=== PATIENT | male | born 1960 | race Caucasian/White ===

== ENCOUNTER 2022-05-20 05:44 | Emergency (ER) | payer OTHER ==
[~2022-05-20] VITALS: Ht 177.8 cm; Wt 93.0 kg
--- NOTE | 2022-05-20 06:29 | NUR ---
patient c/o tongue swelling since 299. to bed 3. a/ox4. sister in law at bedside. connected to monitor.
[2022-05-20] MEDS ORDERED: diphenhydrAMINE HCL 50 MG/ML VIAL IV ONE (06:30)
[2022-05-20] MEDS ORDERED: methylPREDNISolone SOD SUCC 125 MG/2ML VIAL IV ONE (06:30)
[2022-05-20] MEDS ORDERED: diphenhydrAMINE HCL 50 MG/ML VIAL ONE (06:33)
[2022-05-20] MEDS ORDERED: methylPREDNISolone SOD SUCC 125 MG/2ML VIAL ONE (06:33)
[2022-05-20] MEDS ORDERED: EPINEPHRINE (1:1000) 1 MG/ML AMPUL ONE (06:45)
[2022-05-20] MEDS ORDERED: TRANEXAMIC ACID 1,000 MG/10 ML VIAL ONE (06:46)
--- NOTE | 2022-05-20 06:52 | NUR ---
COVID SWAB DONE AND SENT TO LAB
--- NOTE | 2022-05-20 06:55 | NUR ---
[facility] ORDO[facility] CALLED FOR HIGHER LEVEL OF CARE. LEFT MESSAGE.
[2022-05-20] MEDS ORDERED: TRANEXAMIC ACID 1,000 MG/10 ML VIAL IV ONE (07:00)
[2022-05-20] MEDS ORDERED: EPINEPHRINE (1:1000) MDV 30 MG/30ML VIAL SUBCUT ONE (07:00)
--- NOTE | 2022-05-20 07:14 | NUR ---
[facility] CALLED FOR HIGHER LEVEL OF CARE. [facility] FAXED TO [phone]
--- NOTE | 2022-05-20 07:33 | NUR ---
[facility] [facility] FAXED TO [facility]DO[facility].
--- NOTE | 2022-05-20 09:20 | NUR ---
REFAXED [facility]. [phone]
--- NOTE | 2022-05-20 10:12 | NUR ---
DR. RIGGS FROM [facility] SPEAKING WITH DR. MAST.
[2022-05-20] MEDS ORDERED: DIPH25CA83 PO (10:49)
[2022-05-20] MEDS ORDERED: PRED50TA PO (10:49)
--- NOTE | 2022-05-20 10:58 | NUR ---
DR. KANNAN ALVARADO FROM [facility] CALLED FOR DR. MAST
--- NOTE | 2022-05-20 11:02 | NUR ---
PT DISCHARGED TO HOME WITH NEW PRESCRIPTION. PT EDUCATED ON MEDICATION. PT VERBALIZES UNDERSTANDING OF EDUCATION. IV REMOVED. PT LEFT FACILITY.
[2022-05-20 11:03] VITALS: BP 111/65
== END 2022-05-20 11:04 | disposition home or self-care (01) ==
LOC: ER 05:47
DX: T78.3XXA Angioneurotic edema, initial encounter (principal); R73.03 Prediabetes; Z20.822 Contact with and (suspected) exposure to COVID-19
CPT/HCPCS: 87426; 96372; 96374; 96375; 99291; C9803; J0171 ×2; J1200; J2930

== ENCOUNTER 2022-09-06 10:27 | Emergency (ER) | payer OTHER ==
[~2022-09-06] VITALS: Ht 180.3 cm; Wt 93.0 kg
[~2022-09-06 10:27] MED LIST: DIPH25CA83 PO; PRED50TA PO
--- NOTE | 2022-09-06 10:27 | NUR ---
BIBWIFE c/o cough with congestion x 5 days and sorethroat x 4 days, tested negative (covid) 2 days ago. AMBULATORY, PLACED ON BED,BREATHING EVEN AND UNLABORED.
[2022-09-06] MEDS ORDERED: KETOROLAC TROMETHAMINE 15 MG/ML VIAL ONE (11:48)
[2022-09-06] MEDS: BENZONATATE 100 MG CAPSULE PO PRN (11:56)
[2022-09-06] MEDS: KETOROLAC TROMETHAMINE INJ 30 MG/ML VIAL IM ONE (11:57)
--- NOTE | 2022-09-06 11:58 | NUR ---
SWAB FOR [facility] SENT
[2022-09-06] MEDS ORDERED: IBUP-1955 PO (12:04)
[2022-09-06] MEDS ORDERED: BENZ-13 PO (12:04)
[2022-09-06 12:24] VITALS: BP 115/75
--- NOTE | 2022-09-06 12:24 | NUR ---
Patient discharged to home in stable condition. Written and verbal after care instructions given. Patient verbalizes understanding of instruction.
== END 2022-09-06 12:25 | disposition home or self-care (01) ==
LOC: ER 10:27
DX: J02.8 Acute pharyngitis due to other specified organisms (principal); B97.89 Other viral agents as the cause of diseases classified elsewhere; R05.9 Cough, unspecified; Z20.822 Contact with and (suspected) exposure to COVID-19; R73.03 Prediabetes; E78.5 Hyperlipidemia, unspecified; I10 Essential (primary) hypertension
CPT/HCPCS: 99283; 96372; U0003; J1885; C9803

== ENCOUNTER 2023-12-15 08:28 | Emergency (ER) | payer OTHER ==
[~2023-12-15] VITALS: Ht 177.8 cm; Wt 87.1 kg
[~2023-12-15 08:28] MED LIST changes: +BENZ-13 PO; +IBUP-1955 PO
[2023-12-15 08:54] VITALS: TEMP 97.8
[2023-12-15 10:23] LABS: BASOPHILS # (AUTO) 0.1 K/uL (0.0-0.2); BASOPHILS % (AUTO) 1.5 % (0.0-2.0); EOSINOPHILS # (AUTO) 0.2 K/uL (0.0-0.7); EOSINOPHILS % (AUTO) 3.3 % (0.0-6.0); HEMATOCRIT 45 % (39-51); HEMOGLOBIN 15.7 g/dL (13.5-17.5); LYMPHOCYTES # (AUTO) 1.5 K/uL (0.8-4.8); LYMPHOCYTES % (AUTO) 27.4 % (20.0-44.0); MEAN CORPUSCULAR HEMOGLOBIN 32 PG (26.0-33.0); MEAN CORPUSCULAR HGB CONC 35 g/dl (31.0-36.0); MEAN CORPUSCULAR VOLUME 92 fL (80-96); MONOCYTES # (AUTO) 0.5 K/uL (0.1-1.30); MONOCYTES % (AUTO) 10.1 % (2.0-12.0); NEUTROPHILS # (AUTO) 3.1 K/uL (1.8-8.9); NEUTROPHILS % (AUTO) 57.7 % (43.0-81.0); PLATELET COUNT (AUTO) 211 K/uL (150-450); RED BLOOD CELL COUNT(AUTO) 4.92 MIL/uL (4.5-6.0); RED CELL DISTRIBUTION WIDTH 13.2 % (11.5-15.0); WHITE BLOOD COUNT (AUTO) 5.4 K/uL (4.3-11.0)
[2023-12-15 10:57] LABS: CALCIUM, SERUM 8.8 mg/dL (8.5-10.1); CREATININE 0.8 mg/dL (0.6-1.3); POTASSIUM 4.4 mmol/L (3.5-5.1)
[2023-12-15] MEDS ORDERED: AZIT1PAC9 PO (11:55)
[2023-12-15 12:06] VITALS: BP 110/76; O2SAT 95
== END 2023-12-15 12:04 | disposition home or self-care (01) ==
LOC: ER 08:31
DX: J40 Bronchitis, not specified as acute or chronic (principal); R05.9 Cough, unspecified; E78.5 Hyperlipidemia, unspecified; I10 Essential (primary) hypertension; Z20.822 Contact with and (suspected) exposure to COVID-19; Z79.899 Other long term (current) drug therapy; Z88.5 Allergy status to narcotic agent
CPT/HCPCS: 36415; 71045-TC; 80048-TC; 84484-TC; 85025-TC

== ENCOUNTER 2025-03-15 12:02 | Emergency (ER) | payer OTHER ==
[~2025-03-15] VITALS: Ht 180.3 cm; Wt 93.0 kg
[~2025-03-15 12:02] MED LIST changes: +AZIT1PAC9 PO
[2025-03-15] MEDS ORDERED: NAPR-1164 PO (12:39)
[2025-03-15] MEDS ORDERED: KETOROLAC TROMETHAMINE 15 MG/ML VIAL ONE (12:57)
[2025-03-15] MEDS: KETOROLAC TROMETHAMINE 15 MG/ML VIAL IM ONE (13:01)
[2025-03-15 13:19] VITALS: BP 126/70; TEMP 98.5; O2SAT 98
== END 2025-03-15 13:20 | disposition home or self-care (01) ==
LOC: ER 12:19
DX: M54.50 Low back pain, unspecified (principal); I10 Essential (primary) hypertension; E78.5 Hyperlipidemia, unspecified; E11.9 Type 2 diabetes mellitus without complications; M19.90 Unspecified osteoarthritis, unspecified site; Z79.52 Long term (current) use of systemic steroids; Z88.5 Allergy status to narcotic agent; Z79.899 Other long term (current) drug therapy
CPT/HCPCS: 99283; 96372; J1885